=== PATIENT | female | born 1990 | race Caucasian/White ===

== ENCOUNTER 2024-09-10 13:59 | Observation (INO) | payer OTHER, SELFPAY ==
[2024-09-10] VITALS (18 sets, daily range): BP systolic 104–122; BP diastolic 67–81; PULSE 74–112; RESP 18–22; TEMP 36.7; O2SAT 91–99; BMI 29.1; BMI 29.6
--- NOTE | 2024-09-10 14:53 | ED_ITS ---
HPI - General Adult General Chief complaint: Shortness of Breath/Dyspnea <Gloria Sullivan MD - Last Filed: 09/10/24 16:06> Stated complaint: Lightheaded, recent pneumonia <Gloria Sullivan MD - Last Filed: 09/10/24 16:06> Time Seen by Provider: 09/10/24 14:14 <Gloria Sullivan MD - Last Filed: 09/10/24 16:06> Source: patient <Gloria Sullivan MD - Last Filed: 09/10/24 16:06> Mode of arrival: ambulatory <Gloria Sullivan MD - Last Filed: 09/10/24 16:06> Limitations: no limitations <Gloria Sullivan MD - Last Filed: 09/10/24 16:06> History of Present Illness HPI narrative: Patient is a 34-year-old female presenting today with shortness of breath. Patient states that 2 days ago she was diagnosed with a pneumonia. She was started on doxycycline. She states that she feels significantly worse today. She states that any movement causes significant shortness of breath. She is having terrible coughing fits. States she has been afebrile for 1 or 2 days. No changes in her appetite. Difficulty sleeping at night secondary to cough. No chest pain. Denies any recent traveling. Complains of a sore throat. <Gloria Sullivan MD - Last Filed: 09/10/24 16:06> Related Data Home medications: Home Medications ?Medication ?Instructions ?Recorded ?Confirmed albuterol sulfate 90 mcg/actuation 2 puff inhalation QID PRN wheezing 09/10/24 09/10/24 aerosol inhaler aripiprazole 5 mg tablet 5 mg PO DAILY 09/10/24 09/10/24 benzonatate 200 mg capsule PO 09/10/24 cefdinir 300 mg capsule PO 09/10/24 cetirizine 10 mg tablet 10 mg PO DAILY 09/10/24 09/10/24 dextroamphetamine-amphetamine ER 1 cap PO QAM 09/10/24 09/10/24 10 mg 24hr capsule,extend release doxycycline hyclate 100 mg capsule 100 mg PO BID 09/10/24 09/10/24 drospirenone 3 mg-ethinyl 1 tab PO DAILY 09/10/24 09/10/24 estradiol 0.03 mg tablet propranolol 10 mg tablet 10 mg PO DAILY PRN 09/10/24 09/10/24 sertraline 100 mg tablet mg PO 09/10/24 trazodone 50 mg tablet 50 mg PO QPM 09/10/24 09/10/24 <Gloria Sullivan MD - Last Filed: 09/10/24 16:06> Allergies/adverse reactions: Allergies Allergy/AdvReac Type Severity Reaction Status Date / Time No Known Drug Allergies Allergy Verified 09/10/24 14:07 <Gloria Sullivan MD - Last Filed: 09/10/24 16:06> Review of Systems Status of ROS: Reports: 10 or more systems reviewed and unremarkable except as noted in History and below <Gloria Sullivan MD - Last Filed: 09/10/24 16:06> [facility] Social History: Social History Smoking Status: Never smoker Do you use any of these nicotine containing products: None Second hand tobacco smoke exposure: No How often do you have a drink containing alcohol: never AUDIT-C Alcohol total score: 0 Non-prescribed substance use: denies use service: No <Gloria Sullivan MD - Last Filed: 09/10/24 16:06> Exam Narrative: Exam Narrative: Well-nourished well-developed patient in no acute distress. Alert and oriented. Answers questions appropriately. Mood and affect are appropriate. Thoughts are goal oriented and rational. No tangential or magical thinking noted. Patient speaks in full sentences without needing to catch her breath. HEENT: Normocephalic atraumatic. Pupils are equally round reactive to light. Extraocular muscles are intact. Conjunctivae are moist without any icterus noted. Moist mucous membranes. Posterior pharynx is normal. Neck is soft w ithout lymphadenopathy. Cardiovascular: Heart is regular rate and rhythm S1 and S2 are present without any murmurs. Lungs: Clear to auscultation on the right, rales on the left. Abdomen: Soft and nontender nondistended with normal bowel sounds. Extremities: Bilateral lower extremities are without edema. Skin: Well perfused without any obvious rashes. <Gloria Sullivan MD - Last Filed: 09/10/24 16:06> Const: Vital Signs, click to edit/add: Vital Signs - 24 hr 10/20/24 14:03 09/10/24 15:01 09/10/24 15:05 Temperature 98.0 F Pulse Rate 80 Pulse Rate [Right Pulse Oximeter] 112 H Respiratory Rate 22 Blood Pressure Blood Pressure [Ri ght Upper Arm] 104/67 Pulse Oximetry 96 94 92 Oxygen Delivery Me thod Room Air 09/10/24 15:30 09/10/24 16:04 09/10/24 16:30 Temperature Pulse Rate 85 97 93 Pulse Rate [Right Pulse Oximeter] Respiratory Rate Blood Pressure Blood Pressure [Ri ght Upper Arm] Pulse Oximetry 92 91 96 Oxygen Delivery Me thod 09/10/24 17:00 09/10/24 17:48 09/10/24 17:49 Temperature Pulse Rate 80 83 85 Pulse Rate [Right Pulse Oximeter] Respiratory Rate Blood Pressure 114/75 Blood Pressure [Ri ght Upper Arm] Pulse Oximetry 95 94 93 Oxygen Delivery Me thod 09/10/24 18:00 09/10/24 18:01 09/10/24 18:02 Temperature Pulse Rate 86 85 83 Pulse Rate [Right Pulse Oximeter] Respiratory Rate Blood Pressure 105/75 Blood Pressure [Ri ght Upper Arm] Pulse Oximetry 95 96 96 Oxygen Delivery Me thod 09/10/24 18:30 09/10/24 18:32 Temperature Pulse Rate 76 83 Pulse Rate [Right Pulse Oximeter] Respiratory Rate Blood Pressure 117/79 Blood Pressure [Ri ght Upper Arm] Pulse Oximetry 97 98 Oxygen Delivery Me thod <Gloria Sullivan MD - Last Filed: 09/10/24 16:06> Vital Signs, click to edit/add: Vital Signs - 24 hr 09/10/24 14:03 09/10/24 15:01 09/10/24 15:05 Temperature 98.0 F Pulse Rate 80 Pulse Rate [Right Pulse Oximeter] 112 H Respiratory Rate 22 Blood Pressure Blood Pressure [Ri ght Upper Arm] 104/67 Pulse Oximetry 96 94 92 Oxygen Delivery Me thod Room Air 09/10/24 15:30 09/10/24 16:04 09/10/24 16:30 Temperature Pulse Rate 85 97 93 Pulse Rate [Right Pulse Oximeter] Respiratory Rate Blood Pressure Blood Pressure [Ri ght Upper Arm] Pulse Oximetry 92 91 96 Oxygen Delivery Me thod 09/10/24 17:00 09/10/24 17:48 09/10/24 17:49 Temperature Pulse Rate 80 83 85 Pulse Rate [Right Pulse Oximeter] Respiratory Rate Blood Pressure 114/75 Blood Pressure [Ri ght Upper Arm] Pulse Oximetry 95 94 93 Oxygen Delivery Me thod 09/10/24 18:00 09/10/24 18:01 09/10/24 18:02 Temperature Pulse Rate 86 85 83 Pulse Rate [Right Pulse Oximeter] Respiratory Rate Blood Pressure 105/75 Blood Pressure [Ri ght Upper Arm] Pulse Oximetry 95 96 96 Oxygen Delivery Me thod 09/10/24 18:30 09/10/24 18:32 Temperature Pulse Rate 76 83 Pulse Rate [Right Pulse Oximeter] Respiratory Rate Blood Pressure 117/79 Blood Pressure [Ri ght Upper Arm] Pulse Oximetry 97 98 Oxygen Delivery Me thod <Ousmane Ibarra MD - Last Filed: 09/10/24 18:58> Course Course ED Course: Upon arrival patient is tachycardic with a pulse of 112. The timer EKGs done her pulse is 93. Her EKG shows sinus rhythm with PVCs. However, we ambulated the patient her pulse would go up to 130 and she became too lightheaded to continue walking. Oxygen saturation remained at 94% Her CBC was unremarkable her lactate was elevated above 3. IV was established and patient received a L of normal saline. Sodium and potassium slightly low, remainder of chemistries unremarkable. CRP elevated at 5.8. D-dimer elevated 0.76 test pending at this time. Patient will proceed to CT for PE study <Gloria Sullivan MD - Last Filed: 09/10/24 16:06> Vital Signs Vital signs: Initial Vital Signs Temperature 98.0 F 09/10/24 14:03 Temperature Source Temporal Artery Scan 09/10/24 14:03 Pulse Rate 112 H 09/10/24 14:03 Pulse Rhythm Regular 09/10/24 14:03 Pulse Strength 3+ Normal 09/10/24 14:03 Respiratory Rate 22 09/10/24 14:03 Blood Pressure 104/67 09/10/24 14:03 Blood Pressure Mean 79 09/10/24 14:03 Blood Pressure Position Sitting 09/10/24 14:03 Pulse Oximetry 96 09/10/24 14:03 Oxygen Delivery Method Room Air 09/10/24 14:03 Vital Signs Temperature 98.0 F 09/10/24 14:03 Pulse Rate 112 H 09/10/24 14:03 Respiratory Rate 22 09/10/24 14:03 Blood Pressure 104/67 09/10/24 14:03 Pulse Oximetry 96 09/10/24 14:03 Oxygen Delivery Method Room Air 09/10/24 14:03 Temperature 98.0 F 09/10/24 14:03 Pulse Rate 83 09/10/24 18:32 Respiratory Rate 22 09/10/24 14:03 Blood Pressure 117/79 09/10/24 18:32 Pulse Oximetry 98 09/10/24 18:32 Oxygen Delivery Method Room Air 09/10/24 14:03 <Gloria Sullivan MD - Last Filed: 09/10/24 16:06> Initial Vital Signs Temperature 98.0 F 09/10/24 14:03 Temperature Source Temporal Artery Scan 09/10/24 14:03 Pulse Rate 112 H 09/10/24 14:03 Pulse Rhythm Regular 09/10/24 14:03 Pulse Strength 3+ Normal 09/10/24 14:03 Respiratory Rate 22 09/10/24 14:03 Blood Pressure 104/67 09/10/24 14:03 Blood Pressure Mean 79 09/10/24 14:03 Blood Pressure Position Sitting 09/10/24 14:03 Pulse Oximetry 96 09/10/24 14:03 Oxygen Delivery Method Room Air 09/10/24 14:03 Vital Signs Temperature 98.0 F 09/10/24 14:03 Pulse Rate 112 H 09/10/24 14:03 Respiratory Rate 22 09/10/24 14:03 Blood Pressure 104/67 09/10/24 14:03 Pulse Oximetry 96 09/10/24 14:03 Oxygen Delivery Method Room Air 09/10/24 14:03 Temperature 98.0 F 09/10/24 14:03 Pulse Rate 83 09/10/24 18:32 Respiratory Rate 22 09/10/24 14:03 Blood Pressure 117/79 09/10/24 18:32 Pulse Oximetry 98 09/10/24 18:32 Oxygen Delivery Method Room Air 09/10/24 14:03 <Ousmane Ibarra MD - Last Filed: 09/10/24 18:58> Medications Administered Medications: Discontinued Medications Generic Name Dose Route Start Last Admin Trade Name Freq PRN Reason Stop Dose Admin Sodium Chloride 1,000 mls @ 1,000 mls/hr 09/10/24 15:15 09/10/24 16:53 0.9 % Sodium Chloride 1000 Ml IV 09/10/24 16:14 Infused .Q1H JONY Infusion Sodium Chloride 1,000 mls @ 1,000 mls/hr 09/10/24 17:45 09/10/24 17:55 0.9 % Sodium Chloride 1000 Ml IV 09/10/24 18:44 1,000 mls/hr .Q1H JONY Administration <Gloria Sullivan MD - Last Filed: 09/10/24 16:06> Discontinued Medications Generic Name Dose Route Start Last Admin Trade Name Freq PRN Reason Stop Dose Admin Sodium Chloride 1,000 mls @ 1,000 mls/hr 09/10/24 15:15 09/10/24 16:53 0.9 % Sodium Chloride 1000 Ml IV 09/10/24 16:14 Infused .Q1H JONY Infusion Sodium Chloride 1,000 mls @ 1,000 mls/hr 09/10/24 17:45 09/10/24 17:55 0.9 % Sodium Chloride 1000 Ml IV 09/10/24 18:44 1,000 mls/hr .Q1H JONY Administration <Ousmane Ibarra MD - Last Filed: 09/10/24 18:58> Medical Decision Making MDM Narrative Medical decision making narrative: Life-threatening differential diagnosis includes occluded COPD exacerbation, pulmonary edema, acute coronary syndromes, pulmonary embolism, pneumonia, and pneumothorax. Other differential diagnosis considerations include asthma, bronchitis as well as other etiologies CT came back showing evidence of left lower lobe pneumonia, with other it pneumonia pattern. Timing of bolus was suboptimal, no large emboli are seen, but could not rule out a peripheral emboli. She feels better after the IV fluids. But given the severity of her pneumonia I would argue a couple days of IV antibiotics would significantly help her. I discussed with her, and also the hospitalist she agreed to admit her. Repeat lactate is pending, he has become less tachycardic ureter also good things <Ousmane Ibarra MD - Last Filed: 09/10/24 18:58> Lab Data Lab results reviewed: Yes I reviewed the patient's lab results <Ousmane Ibarra MD - Last Filed: 09/10/24 18:58> Labs: Lab Results 09/10/24 09/10/24 09/10/24 Range/Units 14:45 14:48 16:17 WBC 8.90 (4.50-11.00) K/uL RBC 4.67 (4.00-5.20) m/uL Hgb 13.8 (12.0-16.0) gm/dL Hct 41.1 (33.0-51.0) % MCV 88 (80-100) fL MCH 30 (26-34) pg MCHC 34 (32-36) gm/dL RDW Coeff of Mansi 11.8 (11.5-15.5) % Plt Count 422 (140-440) K/uL Neut % (Auto) 66.9 (42.0-72.0) % Lymph % (Auto) 21.6 (20-44) % Mckinley % (Auto) 9.1 (0.0-11.0) % Eos % (Auto) 0.4 (0.0-7.0) % Baso % (Auto) 0.2 (0.0-3.0) % Neut # (Auto) 5.95 (1.7-7.0) K/uL Lymph # (Auto) 1.92 (0.90-2.90) K/uL Mckinley # (Auto) 0.80 (0.00-0.90) K/UL Eos # (Auto) 0.04 (0.00-0.50) K/uL Baso # (Auto) 0.02 (0.00-0.30) K/uL Abs Immat Gran (auto) 0.16 (0.00-0.30) K/uL Imm/Tot Granulo (auto) 1.8 % D-Dimer Quant (PE/DVT) 0.76 H (0.00-0.50) ug/ml Sodium 133 L (135-149) mmol/L Potassium 3.4 L (3.6-5.1) mmol/L Chloride 99 (96-114) mmol/L Carbon Dioxide 23 (20-32) mmol/L Anion Gap 11 (7-15) mEq/L BUN 12 (5-24) mg/dL Creatinine 0.7 (0.5-1.5) mg/dL Estimated Creat Clear 101.90 Estimated GFR 116 ml/min Glucose 103 (60-115) mg/dL Lactate 3.1 H (0.5-1.9) mmol/L Calcium 8.6 (8.4-10.6) mg/dL Troponin I < 0.01 L (0.01-0.04) ng/mL C-Reactive Protein 5.8 H (0.5-1.0) mg/dL Procalcitonin 0.05 (<0.50) ng/mL Urine HCG, Qual Negative (Negative) SARS-CoV-2 (PCR) Negative SARS-CoV-2 (Negative) Influenza Type A (PCR) Negative PCR FLU A (Negative) Influenza Type B (PCR) Negative PCR FLU B (Negative) RSV (PCR) Negative PCR RSV (Negative) Group A Strep DNA NOT DETECTED (Not Detectd) <Gloria Sullivan MD - Last Filed: 09/10/24 16:06> Lab Results 09/10/24 09/10/24 09/10/24 Range/Units 14:45 14:48 16:17 WBC 8.90 (4.50-11.00) K/uL RBC 4.67 (4.00-5.20) m/uL Hgb 13.8 (12.0-16.0) gm/dL Hct 41.1 (33.0-51.0) % MCV 88 (80-100) fL MCH 30 (26-34) pg MCHC 34 (32-36) gm/dL RDW Coeff of Mansi 11.8 (11.5-15.5) % Plt Count 422 (140-440) K/uL Neut % (Auto) 66.9 (42.0-72.0) % Lymph % (Auto) 21.6 (20-44) % Mckinley % (Auto) 9.1 (0.0-11.0) % Eos % (Auto) 0.4 (0.0-7.0) % Baso % (Auto) 0.2 (0.0-3.0) % Neut # (Auto) 5.95 (1.7-7.0) K/uL Lymph # (Auto) 1.92 (0.90-2.90) K/uL Mckinley # (Auto) 0.80 (0.00-0.90) K/UL Eos # (Auto) 0.04 (0.00-0.50) K/uL Baso # (Auto) 0.02 (0.00-0.30) K/uL Abs Immat Gran (auto) 0.16 (0.00-0.30) K/uL Imm/Tot Granulo (auto) 1.8 % D-Dimer Quant (PE/DVT) 0.76 H (0.00-0.50) ug/ml Sodium 133 L (135-149) mmol/L Potassium 3.4 L (3.6-5.1) mmol/L Chloride 99 (96-114) mmol/L Carbon Dioxide 23 (20-32) mmol/L Anion Gap 11 (7-15) mEq/L BUN 12 (5-24) mg/dL Creatinine 0.7 (0.5-1.5) mg/dL Estimated Creat Clear 101.90 Estimated GFR 116 ml/min Glucose 103 (60-115) mg/dL Lactate 3.1 H (0.5-1.9) mmol/L Calcium 8.6 (8.4-10.6) mg/dL Troponin I < 0.01 L (0.01-0.04) ng/mL C-Reactive Protein 5.8 H (0.5-1.0) mg/dL Procalcitonin 0.05 (<0.50) ng/mL Urine HCG, Qual Negative (Negative) SARS-CoV-2 (PCR) Negative SARS-CoV-2 (Negative) Influenza Type A (PCR) Negative PCR FLU A (Negative) Influenza Type B (PCR) Negative PCR FLU B (Negative) RSV (PCR) Negative PCR RSV (Negative) Group A Strep DNA NOT DETECTED (Not Detectd) <Ousmane Ibarra MD - Last Filed: 09/10/24 18:58> Imaging Data CT scan - chest: Attestation: I have reviewed the pertinent imaging results. <Ousmane Ibarra MD - Last Filed: 09/10/24 18:58> My impression: . Pneumonia with no evidence of central pulmonary emboli <Ousmane Ibarra MD - Last Filed: 09/10/24 18:58> Radiologist's impression: Patient: NIXON BLACKMON Facility:?[facility] Patient ID:?[id number] Site Patient ID:?[id number]. Site :?[id number] Study:?CT-Chest Angio PE protocol-09/10/2024 5:31:23 PM Ordering Physician:Nikia Castro Final Report: INDICATION: Shortness of breath, left-sided chest pain, pneumonia. COMPARISON: None. TECHNIQUE: CT angiogram chest with contrast, pulmonary embolism protocol. Multiplanar axial, coronal, and sagittal reformats are included. MIP images to improve de tection of pulmonary emboli are included. Intravenous contrast: 95 mL Isovue 370. FINDINGS: PE: Nondiagnostic contrast bolus. No embolus seen in the main pulmonary artery through its bifurcation. Beyond that contrast bolus is nondiagnostic. Normal caliber main pulmonary artery. Normal sized right heart chambers. No reflux of contrast below the diaphragm. Airway: Respiratory motion. Lungs: Respiratory motion. Left lower lobe consolidative opacity measures about 5.5 x 2.2 cm. Air bronchograms are seen extending out to the periphery. No findings of necrosis. There are other smaller nodular and patchy opacities throughout. There are diffuse tree-in-bud nodules. No pulmonary edema. Pleura: No pleural effusion. No pneumothorax. Lymph nodes: No thoracic adenopathy. Mediastinum: No pneumomediastinum. No mass. Heart and great vessels: No pericardial effusion. Normal cardiac chamber size. No calcified atherosclerotic plaques. No aortic aneurysm. Chest wall: Normal. No masses. Upper abdomen: Normal. Bones: No fractures. No focal bone lesions. IMPRESSION: 1. Nondiagnostic contrast bolus. No secondary findings of right heart strain. 2. Diffuse infectious airways disease with superimposed left lower lobe pneumonia. No findings of cavitation or necrosis. No parapneumonic effusion. Please note that all CT scans at this facility use dose modulation, iterative reconstruction, and/or weight-based dosing when appropriate to reduce radiation dose to as low as reasonably achievable. Dictated by Simona Harley MD @ 09/10/2024 5:57:28 PM (Electronic Signature) <Ousmane Ibarra MD - Last Filed: 09/10/24 18:58> Discharge Plan Discharge Clinical Impression: Pneumonia <Gloria Sullivan MD - Last Filed: 09/10/24 16:06> Patient Disposition: Admitted As Observation <Gloria Sullivan MD - Last Filed: 09/10/24 16:06> Condition: Stable <Gloria Sullivan MD - Last Filed: 09/10/24 16:06> Additional Instructions: Make sure to increase her daily water intake. Continue taking your antibiotics as prescribed. <Gloria Sullivan MD - Last Filed: 09/10/24 16:06> Prescriptions: No Action doxycycline hyclate 100 mg capsule 100 mg PO BID trazodone 50 mg tablet 50 mg PO QPM cetirizine 10 mg tablet 10 mg PO DAILY benzonatate 200 mg capsule PO sertraline 100 mg tablet PO propranolol 10 mg tablet 10 mg PO DAILY PRN dextroamphetamine-amphetamine 10 mg capsule,extended release 24hr 1 cap PO QAM albuterol sulfate 90 mcg/actuation HFA aerosol inhaler 2 puff INHALATION QID PRN (Reason: wheezing) cefdinir 300 mg capsule PO drospirenone-ethinyl estradiol 3-0.03 mg tablet 1 tab PO DAILY aripiprazole 5 mg tablet 5 mg PO DAILY <Gloria Sullivan MD - Last Filed: 09/10/24 16:06> Follow Up/Referrals: Provider,Not a Local [Primary Care Provider] - <Gloria Sullivan MD - Last Filed: 09/10/24 16:06> Stand Alone Forms: [employer] Info Instructions <Gloria Sullivan MD - Last Filed: 09/10/24 16:06>
[2024-09-10 14:57] LABS: Lactate* 3.1 mmol/L (0.5-1.9)
[2024-09-10 14:58] LABS: Basophils Absolute Auto 0.02 K/uL (0.00-0.30); Basophils Percent Auto 0.2 % (0.0-3.0); Eosinophils Absolute Auto 0.04 K/uL (0.00-0.50); Eosinophils Percent Auto 0.4 % (0.0-7.0); Hematocrit 41.1 % (33.0-51.0); Hemoglobin* 13.8 gm/dL (12.0-16.0); Immature Granulocytes Abs Auto 0.16 K/uL (0.00-0.30); Immature Granulocytes Pct Auto 1.8 %; Lymphocytes Absolute Auto 1.92 K/uL (0.90-2.90); Lymphocytes Percent Auto 21.6 % (20-44); Mean Corpuscular HGB Conc 34 gm/dL (32-36); Mean Corpuscular Hemoglobin 30 pg (26-34); Mean Corpuscular Volume 88 fL (80-100); Monocytes Percent Auto 9.1 % (0.0-11.0); Neutrophils Absolute Auto 5.95 K/uL (1.7-7.0); Neutrophils Percent Auto 66.9 % (42.0-72.0); Platelet Count* 422 K/uL (140-440); RDW Coefficient of Variation % 11.8 % (11.5-15.5); Red Blood Count 4.67 m/uL (4.00-5.20)
[2024-09-10 14:59] LABS: Slide Review Reflex No
[2024-09-10 15:15] LABS: Chloride* 99 mmol/L (96-114); Potassium* 3.4 mmol/L (3.6-5.1); Sodium* 133 mmol/L (135-149)
[2024-09-10 15:18] LABS: Anion Gap 11 mEq/L (7-15); Blood Urea Nitrogen* 12 mg/dL (5-24); Carbon Dioxide* 23 mmol/L (20-32); Creatinine* 0.7 mg/dL (0.5-1.5); D Dimer Quantitative* 0.76 ug/ml (0.00-0.50); Estimated Glomerular Filt Rate 116 ml/min
[2024-09-10 15:19] LABS: Calcium* 8.6 mg/dL (8.4-10.6); Glucose* 103 mg/dL (60-115)
[2024-09-10] MEDS: 0.9 % SODIUM CHLORIDE 1000 ml 1,000 ML IV ×2 (15:20→17:55)
[2024-09-10 15:21] LABS: C Reactive Protein* 5.8 mg/dL (0.5-1.0)
[2024-09-10 15:29] LABS: Strep A DNA Probe* NOT DETECTED (Not Detectd)
[2024-09-10 15:31] LABS: Troponin I* < 0.01 ng/mL (0.01-0.04)
[2024-09-10 15:41] LABS: PCR FLU A Negative PCR FLU A (Negative); PCR FLU B Negative PCR FLU B (Negative); PCR RSV Negative PCR RSV (Negative); SARS PCR* Negative SARS-CoV-2 (Negative)
--- NOTE | 2024-09-10 15:42 | CRLHL7_ITS ---
For Patients: As a result of the Century Cures Act, medical imaging exams and procedure reports are released immediately into your electronic medical record. You may view this report before your referring provider. If you have questions, please contact your health care provider. INDICATION: Shortness of breath, left-sided chest pain, pneumonia. COMPARISON: None. TECHNIQUE: CT angiogram chest with contrast, pulmonary embolism protocol. Multiplanar axial, coronal, and sagittal reformats are included. MIP images to improve detection of pulmonary emboli are included. Intravenous contrast: 95 mL Isovue 370. FINDINGS: PE: Nondiagnostic contrast bolus. No embolus seen in the main pulmonary artery through its bifurcation. Beyond that contrast bolus is nondiagnostic. Normal caliber main pulmonary artery. Normal sized right heart chambers. No reflux of contrast below the diaphragm. Airway: Respiratory motion. Lungs: Respiratory motion. Left lower lobe consolidative opacity measures about 5.5 x 2.2 cm. Air bronchograms are seen extending out to the periphery. No findings of necrosis. There are other smaller nodular and patchy opacities throughout. There are diffuse tree-in-bud nodules. No pulmonary edema. Pleura: No pleural effusion. No pneumothorax. Lymph nodes: No thoracic adenopathy. Mediastinum: No pneumomediastinum. No mass. Heart and great vessels: No pericardial effusion. Normal cardiac chamber size. No calcified atherosclerotic plaques. No aortic aneurysm. Chest wall: Normal. No masses. Upper abdomen: Normal. Bones: No fractures. No focal bone lesions. IMPRESSION: 1. Nondiagnostic contrast bolus. No secondary findings of right heart strain. 2. Diffuse infectious airways disease with superimposed left lower lobe pneumonia. No findings of cavitation or necrosis. No parapneumonic effusion. Please note that all CT scans at this facility use dose modulation, iterative reconstruction, and/or weight-based dosing when appropriate to reduce radiation dose to as low as reasonably achievable. Dictated by Simona Harley MD @ 09/10/2024 5:57:28 PM (Electronically Signed)
[2024-09-10 16:23] LABS: Ur HCG Qualitative* Negative (Negative)
[2024-09-10 18:36] LABS: Procalcitonin* 0.05 ng/mL (<0.50)
[2024-09-10 19:09] LABS: Lactate* 2.2 mmol/L (0.5-1.9)
--- NOTE | 2024-09-10 21:26 | PM.IMHP1 ---
Hospitalist- H&P: HPI History of Present Illness Date Seen: 09/10/24 Chief complaint: Lightheaded, recent pneumonia Narrative: Jordyn Morales is a 34 year old female without a significant PMHx except for CLAUDINE/depression who presents with shortness of breath, pleuritic chest pain, dry cough & sore throat to our ED. Pt had a recent diagnosis of pneumonia for which she was given doxycycline for 2 days, which did not help with patient's symptoms and patient decided to come to the ED. patient denies chills, fevers, rhinorrhea or urinary symptoms. She states that she had some abdominal discomfort with alternating constipation/diarrhea that started before taking antibiotics. At the ED patient was tachycardic to the 120s on presentation, hypoxic at 91% on room air. Her labs showed lactic acidosis with LA at 3.1. Elevated CRP and a normal WBC. Mildly elevated D-dimer but CTA did not show any PE and showed diffuse infectious airways disease with superimposed left lower lobe pneumonia. Group A strep DNA was negative. Review of Systems Status of ROS: Reports: 6 or more systems reviewed and unremarkable except as noted in History and below [facility] Medical History (Updated 09/10/24 @ 21:43 by Letitia Rae MD) Depression ?F32.A - Depression, unspecified (ICD-10) CLAUDINE (generalized anxiety disorder) ?F41.1 - Generalized anxiety disorder (ICD-10) Social History Smoking Status: Never smoker Do you use any of these nicotine containing products: None Second hand tobacco smoke exposure: No How often do you have a drink containing alcohol: never AUDIT-C Alcohol total score: 0 Non-prescribed substance use: denies use service: No Meds Home Medications and Allergies Home Medications ?Medication ?Instructions ?Recorded ?Confirmed ?Type albuterol sulfate 90 mcg/actuation 2 puff inhalation QID PRN wheezing 09/10/24 09/10/24 History aerosol inhaler aripiprazole 5 mg tablet 5 mg PO DAILY 09/10/24 09/10/24 History benzonatate 200 mg capsule PO 09/10/24 History cefdinir 300 mg capsule PO 09/10/24 History cetirizine 10 mg tablet 10 mg PO DAILY 09/10/24 09/10/24 History dextroamphetamine-amphetamine ER 1 cap PO QAM 09/10/24 09/10/24 History 10 mg 24hr capsule,extend release doxycycline hyclate 100 mg capsule 100 mg PO BID 09/10/24 09/10/24 History drospirenone 3 mg-ethinyl 1 tab PO DAILY 09/10/24 09/10/24 History estradiol 0.03 mg tablet propranolol 10 mg tablet 10 mg PO DAILY PRN 09/10/24 09/10/24 History sertraline 100 mg tablet mg PO 09/10/24 History trazodone 50 mg tablet 50 mg PO QPM 09/10/24 09/10/24 History Allergies Allergy/AdvReac Type Severity Reaction Status Date / Time No Known Drug Allergies Allergy Verified 09/10/24 14:07 Exam Narrative: Exam Narrative: Physical exam GENERAL: No acute distress. HEAD AND NECK: Atraumatic, normocephalic CARDIOVASCULAR: RRR. Normal S1, S2. No murmurs. RESPIRATORY: Decreased air entry B/L. Patient has diffuse crackles on the left lung. GASTROINTESTINAL: Not distended, not tender to palpation. NEUROLOGY: Alert, awake, oriented X 3. Normal speech. PSYCH: Normal mood, normal affect. Const: Vital Signs, click to edit/add: Vital Signs - 24 hr 09/10/24 14:03 09/10/24 15:01 09/10/24 15:05 Temperature 98.0 F Pulse Rate 80 Pulse Rate [Right Pulse Oximeter] 112 H Respiratory Rate 22 Blood Pressure Blood Pressure [Ri ght Upper Arm] 104/67 Pulse Oximetry 96 94 92 Oxygen Delivery Me thod Room Air 09/10/24 15:30 09/10/24 16:04 09/10/24 16:30 Temperature Pulse Rate 85 97 93 Pulse Rate [Right Pulse Oximeter] Respiratory Rate Blood Pressure Blood Pressure [Ri ght Upper Arm] Pulse Oximetry 92 91 96 Oxygen Delivery Me thod 09/10/24 17:00 09/10/24 17:48 09/10/24 17:49 Temperature Pulse Rate 80 83 85 Pulse Rate [Right Pulse Oximeter] Respiratory Rate Blood Pressure 114/75 Blood Pressure [Ri ght Upper Arm] Pulse Oximetry 95 94 93 Oxygen Delivery Me thod 09/10/24 18:00 09/10/24 18:01 09/10/24 18:02 Temperature Pulse Rate 86 85 83 Pulse Rate [Right Pulse Oximeter] Respiratory Rate Blood Pressure 105/75 Blood Pressure [Ri ght Upper Arm] Pulse Oximetry 95 96 96 Oxygen Delivery Me thod 09/10/24 18:30 09/10/24 18:32 09/10/24 18:33 Temperature Pulse Rate 76 83 79 Pulse Rate [Right Pulse Oximeter] Respiratory Rate Blood Pressure 117/79 Blood Pressure [Ri ght Upper Arm] Pulse Oximetry 97 98 [facility] 19:00 Temperature Pulse Rate 74 Pulse Rate [Right Pulse Oximeter] Respiratory Rate Blood Pressure Blood Pressure [Ri ght Upper Arm] Pulse Oximetry 97 Oxygen Delivery Me od Hospitalist - H&P: Result Labs Labs: Short CBC 09/10/24 Range/Units 14:45 WBC 8.90 (4.50-11.00) K/uL Hgb 13.8 (12.0-16.0) gm/dL Hct 41.1 (33.0-51.0) % Plt Count 422 (140-440) K/uL BMP 09/10/24 14:45 Sodium 133 L Potassium 3.4 L Chloride 99 Carbon Dioxide 23 BUN 12 Creatinine 0.7 Glucose 103 Calcium 8.6 Cardiac Enzymes 09/10/24 Range/Units 14:45 Troponin I < 0.01 L (0.01-0.04) ng/mL Imaging CT scan - chest: Attestation: I have reviewed the pertinent imaging results. Radiologist's impression: TECHNIQUE: CT angiogram chest with contrast, pulmonary embolism protocol. Multiplanar axial, coronal, and sagittal reformats are included. MIP images to improve detection of pulmonary emboli are included. Intravenous contrast: 95 mL Isovue 370. FINDINGS: PE: Nondiagnostic contrast bolus. No embolus seen in the main pulmonary artery through its bifurcation. Beyond that contrast bolus is nondiagnostic. Normal caliber main pulmonary artery. Normal sized right heart chambers. No reflux of contrast below the diaphragm. Airway: Respiratory motion. Lungs: Respiratory motion. Left lower lobe consolidative opacity measures about 5.5 x 2.2 cm. Air bronchograms are seen extending out to the periphery. No findings of necrosis. There are other smaller nodular and patchy opacities throughout. There are diffuse tree-in-bud nodules. No pulmonary edema. Pleura: No pleural effusion. No pneumothorax. Lymph nodes: No thoracic adenopathy. Mediastinum: No pneumomediastinum. No mass. Heart and great vessels: No pericardial effusion. Normal cardiac chamber size. No calcified atherosclerotic plaques. No aortic aneurysm. Chest wall: Normal. No masses. Upper abdomen: Normal. Bones: No fractures. No focal bone lesions. IMPRESSION: 1. Nondiagnostic contrast bolus. No secondary findings of right heart strain. 2. Diffuse infectious airways disease with superimposed left lower lobe pneumonia. No findings of cavitation or necrosis. No parapneumonic effusion. Please note that all CT scans at this facility use dose modulation, iterative reconstruction, and/or weight-based dosing when appropriate to reduce radiation dose to as low as reasonably achievable. Dictated by Simona Harley MD @ 09/10/2024 5:57:28 PM Assessment and Plan Assessment and plan (1) Pneumonia: Problem comment: -start treatment with IV antibiotics, ceftriaxone and azithromycin -IV fluids -benzonatate tablets -follow-up lactic acidosis till it resolves -Group A strep DNA was negative. Status: Acute (2) Severe sepsis: Problem comment: -patient meets SIRS criteria with heart rate above 90 and respiratory rate of 20. -in addition patient has lactic acid above 2.0. -IV antibiotics started, having IV fluids were given (30 mL/kilogram), and lactic acid is being trended Status: Acute (3) Lactic acidosis: Problem comment: -LA 3.1, down trended to 2.2 after 2 L of IV fluids. -will give another 500 mL today it resolves -trend lactic acid Status: Acute (4) CLAUDINE (generalized anxiety disorder): Problem comment: Resume home meds Status: Acute (5) Depression: Problem comment: Resume home meds Status: Acute Total Time Spent Total Time Spent: Time spent: Today I spent 75 minutes seeing the patient, discussing the patient with ER staff, reviewing Expanse and EPIC notes/diagnostics, discussing the care plan with our care time that includes pharmacy, RT, and documenting my impressions and plan in the medical record.
[2024-09-10] MEDS: 0.9 % SODIUM CHLORIDE 500 ML 500 ML IV (21:30)
[2024-09-10] MEDS: cefTRIAXone 1 GM in 0.9 % SODIUM CHLORIDE Mini-bag 100 ML IVPB (22:50)
[2024-09-10] MEDS: BENZONATATE 100 MG CAPSULE 200 MG PO (22:51)
[2024-09-10] MEDS: AZITHROMYCIN 500 MG in 0.9 % SODIUM CHLORIDE 250 ml 250 ML 255 MG IVPB (23:33)
[2024-09-11 00:20] VITALS: BP 111/66; PULSE 59; RESP 16; O2SAT 96
[2024-09-11 03:00] VITALS: PULSE 62; RESP 14; O2SAT 97
[2024-09-11] MEDS: BENZONATATE 100 MG CAPSULE 200 MG PO (06:34)
[2024-09-11 06:35] LABS: Basophils Absolute Auto 0.02 K/uL (0.00-0.30); Basophils Percent Auto 0.3 % (0.0-3.0); Eosinophils Absolute Auto 0.07 K/uL (0.00-0.50); Eosinophils Percent Auto 1.1 % (0.0-7.0); Hematocrit 35.1 % (33.0-51.0); Hemoglobin* 11.8 gm/dL (12.0-16.0); Immature Granulocytes Pct Auto 1.5 %; Lymphocytes Absolute Auto 1.92 K/uL (0.90-2.90); Mean Corpuscular HGB Conc 34 gm/dL (32-36); Mean Corpuscular Hemoglobin 30 pg (26-34); Mean Corpuscular Volume 88 fL (80-100); Monocytes Percent Auto 11.5 % (0.0-11.0); Neutrophils Absolute Auto 3.74 K/uL (1.7-7.0); Neutrophils Percent Auto 56.6 % (42.0-72.0); Platelet Count* 376 K/uL (140-440); White Blood Count* 6.61 K/uL (4.50-11.00)
--- NOTE | 2024-09-11 06:38 | PC.NURSE ---
Shift note: Pt is afebrile, independent in the room, appeared to be rested comfortably throughout the night
[2024-09-11 06:48] LABS: Slide Review Reflex No
[2024-09-11 07:14] LABS: Chloride* 107 mmol/L (96-114); Potassium* 3.9 mmol/L (3.6-5.1); Sodium* 134 mmol/L (135-149)
[2024-09-11 07:17] LABS: Anion Gap 5 mEq/L (7-15); Blood Urea Nitrogen* 5 mg/dL (5-24); Calcium* 7.9 mg/dL (8.4-10.6); Carbon Dioxide* 22 mmol/L (20-32); Creatinine* 0.5 mg/dL (0.5-1.5); Est. Creatinine Clearance* 142.66; Estimated Glomerular Filt Rate 126 ml/min; Glucose* 91 mg/dL (60-115)
[2024-09-11 07:18] LABS: Magnesium* 2.1 mg/dL (1.5-2.6)
[2024-09-11 07:45] VITALS: BP 109/75; PULSE 72; RESP 18; TEMP 36.4; O2SAT 93
--- NOTE | 2024-09-11 08:20 | PM.DS1 ---
DS: Providers Provider Date Seen: 09/11/24 Date of admission: 09/10/24 19:59 Primary care physician: Not a Local Provider Admitting Clinician: Letitia Rae MD Consults: 09/11/24 08:19 Consult to Respiratory Therapy [CONS] Routine Comment: Reason(s) for RT Consult:: Consult Comment: PNA - maybe needs Aerobika on d/c? Attending Physician on discharge: Jenni Francois MD Date of Discharge: 09/11/24 DS: Diagnosis Discharge Diagnosis (1) Pneumonia: Status: Acute Problem details: - LLL, elevated lactate on admission - treated with start treatment with IV Ceftriaxone and Azithromycin (09/10) - negative GAS, Legionella, Strep urinary antigen (2) Severe sepsis: Status: Acute Problem details: - patient meets SIRS criteria with heart rate above 90 and respiratory rate of 20. - in addition patient has lactic acid above 2.0. - VS and lactate resolved on hospital day 1, patient requesting discharge home (3) Lactic acidosis: Status: Acute Problem details: - resolved DS: Summary Hospital Course Hospital Course: Jordyn was admitted to the hospital for community-acquired left lower lobe pneumonia, previously treated as an outpatient with 2 days of oral doxycycline. In the emergency room, she was noted to have mild tachycardia and an elevated lactate. IV ceftriaxone and Rocephin initiated in addition to IV fluid therapy; patient significantly improved and was ready for discharge home on hospital day 1. Vital signs and lactate normalized. Comorbidities remained stable; patient appropriate for discharge home with close PCP follow-up on 09/11/2024. Status at Discharge Functional status at discharge: independent ambulation Overall status at discharge: patient is progressing back to baseline Time Spent with Patient Time attestation: Total time spent providing and/or coordinating discharge services: Time spent: Less than 30 minutes Exam Narrative: Exam Narrative: GEN: Alert and oriented, sitting up in bed and eating breakfast, nontoxic HEENT: EOMIs bilaterally, no scleral icterus CV: RRR, No concerning murmurs, rubs, or gallops R: Speaking in full sentences without tachypnea, no coughing. Coarse rales left lung base, no wheezing Ext: wwp, no concerning edema Skin: No concerning skin lesions or rashes on exposed skin Neuro: Nonfocal Psych: Appropriate Const: Vital Signs, click to edit/add: Vital Signs - 24 hr 09/10/24 14:03 09/10/24 15:01 09/10/24 15:05 Temperature 98.0 F Pulse Rate 80 Pulse Rate [Pulse Oximeter] Pulse Rate [Right Pulse Oximeter] 112 H Respiratory Rate 22 Blood Pressure Blood Pressure [Ri ght Radial Artery] Blood Pressure [Ri ght Upper Arm] 104/67 Pulse Oximetry 96 94 92 Oxygen Delivery Me thod Room Air 09/10/24 15:30 09/10/24 16:04 09/10/24 16:30 Temperature Pulse Rate 85 97 93 Pulse Rate [Pulse Oximeter] Pulse Rate [Right Pulse Oximeter] Respiratory Rate Blood Pressure Blood Pressure [Ri ght Radial Artery] Blood Pressure [Ri ght Upper Arm] Pulse Oximetry 92 91 96 Oxygen Delivery Me thod 09/10/24 17:00 09/10/24 17:48 09/10/24 17:49 Temperature Pulse Rate 80 83 85 Pulse Rate [Pulse Oximeter] Pulse Rate [Right Pulse Oximeter] Respiratory Rate Blood Pressure 114/75 Blood Pressure [Ri ght Radial Artery] Blood Pressure [Ri ght Upper Arm] Pulse Oximetry 95 94 93 Oxygen Delivery Me thod 09/10/24 18:00 09/10/24 18:01 09/10/24 18:02 Temperature Pulse Rate 86 85 83 Pulse Rate [Pulse Oximeter] Pulse Rate [Right Pulse Oximeter] Respiratory Rate Blood Pressure 105/75 Blood Pressure [Ri ght Radial Artery] Blood Pressure [Ri ght Upper Arm] Pulse Oximetry 95 96 96 Oxygen Delivery Me thod 09/10/24 18:30 09/10/24 18:32 09/10/24 18:33 Temperature Pulse Rate 76 83 79 Pulse Rate [Pulse Oximeter] Pulse Rate [Right Pulse Oximeter] Respiratory Rate Blood Pressure 117/79 Blood Pressure [Ri ght Radial Artery] Blood Pressure [Ri ght Upper Arm] Pulse Oximetry 97 98 97 Oxygen Delivery Me thod 09/10/24 19:00 09/10/24 21:08 09/10/24 21:08 Temperature 98.1 F Pulse Rate 74 Pulse Rate [Pulse Oximeter] 82 Pulse Rate [Right Pulse Oximeter] Respiratory Rate 18 Blood Pressure Blood Pressure [Ri ght Radial Artery] 122/81 Blood Pressure [Ri ght Upper Arm] Pulse Oximetry 97 99 99 Oxygen Delivery Me thod Room Air Room Air 09/10/24 23:00 09/11/24 00:20 09/11/24 03:00 Temperature Pulse Rate Pulse Rate [Pulse Oximeter] 82 59 L 62 Pulse Rate [Right Pulse Oximeter] Respiratory Rate 18 16 14 Blood Pressure Blood Pressure [Ri ght Radial Artery] 111/66 Blood Pressure [Ri ght Upper Arm] Pulse Oximetry 96 97 Oxygen Delivery Me thod Room Air Room Air 09/11/24 07:45 Temperature 97.6 F Pulse Rate Pulse Rate [Pulse Oximeter] 72 Pulse Rate [Right Pulse Oximeter] Respiratory Rate 18 Blood Pressure Blood Pressure [Ri ght Radial Artery] 109/75 Blood Pressure [Ri ght Upper Arm] Pulse Oximetry 93 Oxygen Delivery Me thod Room Air DS: Data Data Completed and Pending Labs on day of discharge: Labs from last 24 hours 09/11/24 09/11/24 09/10/24 08:00 06:16 19:05 WBC 6.61 RBC 4.00 Hgb 11.8 L Hct 35.1 MCV 88 MCH 30 MCHC 34 RDW Coeff of Mansi 12.0 Plt Count 376 Neut % (Auto) 56.6 Lymph % (Auto) 29.0 [place] % (Auto) 11.5 H Eos % (Auto) 1.1 Baso % (Auto) 0.3 Neut # (Auto) 3.74 Lymph # (Auto) 1.92 [place] # (Auto) 0.80 Eos # (Auto) 0.07 Baso # (Auto) 0.02 Abs Immat Gran (auto) 0.10 Imm/Tot Granulo (auto) 1.5 D-Dimer Quant (PE/DVT) Sodium 134 L Potassium 3.9 Chloride 107 Carbon Dioxide 22 Anion Gap 5 L BUN 5 Creatinine 0.5 Estimated Creat Clear 142.66 Estimated GFR 126 Glucose 91 Lactate 1.0 2.2 H Calcium 7.9 L Magnesium 2.1 Troponin I C-Reactive Protein Procalcitonin Urine HCG, Qual Urine L. pneumophilia Ag Pending Urine Strep pneumoniae Ag Pending SARS-CoV-2 (PCR) Influenza Type A (PCR) Influenza Type B (PCR) RSV (PCR) Group A Strep DNA 09/10/24 09/10/24 09/10/24 16:17 14:48 14:45 WBC 8.90 RBC 4.67 Hgb 13.8 Hct 41.1 MCV 88 MCH 30 MCHC 34 RDW Coeff of Mansi 11.8 Plt Count 422 Neut % (Auto) 66.9 Lymph % (Auto) 21.6 [place] % (Auto) 9.1 Eos % (Auto) 0.4 Baso % (Auto) 0.2 Neut # (Auto) 5.95 Lymph # (Auto) 1.92 [place] # (Auto) 0.80 Eos # (Auto) 0.04 Baso # (Auto) 0.02 Abs Immat Gran (auto) 0.16 Imm/Tot Granulo (auto) 1.8 D-Dimer Quant (PE/DVT) 0.76 H Sodium 133 L Potassium 3.4 L Chloride 99 Carbon Dioxide 23 Anion Gap 11 BUN 12 Creatinine 0.7 Estimated Creat Clear 101.90 Estimated GFR 116 Glucose 103 Lactate 3.1 H Calcium 8.6 Magnesium Troponin I < 0.01 L C-Reactive Protein 5.8 H Procalcitonin 0.05 Urine HCG, Qual Negative Urine L. pneumophilia Ag Urine Strep pneumoniae Ag SARS-CoV-2 (PCR) Negative SARS-CoV-2 Influenza Type A (PCR) Negative PCR FLU A Influenza Type B (PCR) Negative PCR FLU B RSV (PCR) Negative PCR RSV Group A Strep DNA NOT DETECTED Discharge Plan Discharge Disposition: Home, Self-Care Date of Admission: 09/10/24 19:59 Attending Provider on Discharge: Jenni Francois Primary Care Provider: Provider,Not a Local Condition: Stable Anticipated Discharge Date/Time: 09/11/24 08:16 Discharge Medications: New azithromycin 250 mg tablet 250 mg PO DAILY 4 Days Qty: 4 0RF Rx Instructions: 4 days of 250mg (received 500mg in hospital) Continued trazodone 50 mg tablet 50 mg PO QPM cetirizine 10 mg tablet 10 mg PO DAILY benzonatate 200 mg capsule PO sertraline 100 mg tablet 150 mg PO DAILY propranolol 10 mg tablet 10 mg PO DAILY PRN dextroamphetamine-amphetamine 10 mg capsule,extended release 24hr 1 cap PO QAM albuterol sulfate 90 mcg/actuation HFA aerosol inhaler 2 puff INHALATION QID PRN (Reason: wheezing) drospirenone-ethinyl estradiol 3-0.03 mg tablet 1 tab PO DAILY aripiprazole 5 mg tablet 5 mg PO DAILY Discontinued doxycycline hyclate 100 mg capsule 100 mg PO BID Discharge Orders: Discharge Order (Routine); Ordered 09/11/24 Ordered By: Jenni Francois Patient Education: Azithromycin (By mouth), Community Acquired Pneumonia (DC) Additional Instructions: Make sure to increase her daily water intake. Finish 4 more days of oral abx (sent to [facility]) with a probiotic. Activity Level: No strenuous activity Activity Detail: take 2-3 more days off of work, return when breathing normally and afebrile x24 hours Discharge Diet: Regular Follow Up Appointments: Provider,Not a Local [Primary Care Provider] - (Please make an appointment to see your PCP in 1-2 weeks for hospital f/u. ) Forms: [employer] Info Instructions
[2024-09-11 08:26] LABS: Legionella pneumo Ag Urine L. pneumo Negative (Negative); S pneumo Ag Urine S. pneumo Negative (Negative)
[2024-09-11] MEDS: SERTRALINE 100 MG TABLET 150 MG PO (08:58)
[2024-09-11] MEDS: ARIPiprazole 10 MG TABLET 5 MG PO (08:58)
[2024-09-11] MEDS: cefTRIAXone 1 GM in 0.9 % SODIUM CHLORIDE Mini-bag 100 ML IVPB (08:58)
--- NOTE | 2024-09-11 12:04 | PC.NURSE ---
Discharge: The patient discharged home with her parent this AM. All education was reviewed, and all belongings were sent with her. Work release note was filled out and given to the patient. Louise BUTLER BSN
== END 2024-09-11 11:25 | disposition home or self-care (01) ==
LOC: ED 18:58 → MEDSURG 19:59
PROVIDERS: Family Medicine; Admitting Provider Student in an Organized Health Care Education/Training Program; Emergency Provider Family Medicine; Visit Provider Student in an Organized Health Care Education/Training Program
DX: J18.9 Pneumonia, unspecified organism (principal); R65.20 Severe sepsis without septic shock; A41.9 Sepsis, unspecified organism; R00.0 Tachycardia, unspecified; R79.89 Other specified abnormal findings of blood chemistry; R74.02 Elevation of levels of lactic acid dehydrogenase [LDH]; R79.1 Abnormal coagulation profile; E87.20 Acidosis, unspecified; E87.1 Hypo-osmolality and hyponatremia; E87.6 Hypokalemia; R07.89 Other chest pain; J02.9 Acute pharyngitis, unspecified; R06.02 Shortness of breath; R05.9 Cough, unspecified; G47.8 Other sleep disorders; F41.1 Generalized anxiety disorder; F32.A Depression, unspecified; J45.909 Unspecified asthma, uncomplicated
CPT/HCPCS: 36415; 71275; 80048; 81025; 83605; 83735; 84145; 84484; 85025; 85379; 86140; 87449; 87631; 87651; 87899; 93005; 94664; 94761; 96361; 96365; 96366; 96367; 96375; 99284; 99285; A9270; G0378; J0456; J0696; J1956; J7030; J7050; Q9967